=== PATIENT | male | born 1965 | race African-American/Black ===

== ENCOUNTER 2017-09-06 21:20 | Emergency (ER) | payer MEDICARE, OTHER ==
[~2017-09-06 21:20] MED LIST: DICL75 PO; TRAM50 PO
[2017-09-06 21:21] VITALS: BP 160/96; PULSE 101; RESP 16; TEMP 98.6; O2SAT 98
[2017-09-06] MEDS ORDERED: GABA800T PO (22:40)
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
== END 2017-09-07 00:36 | disposition home or self-care (01) ==
LOC: NEPD 21:20
DX: S00.83XA Contusion of other part of head, initial encounter (principal); H11.31 Conjunctival hemorrhage, right eye; M25.522 Pain in left elbow; V19.9XXA Pedal cyclist (driver) (passenger) injured in unspecified traffic accident, initial encounter; Y93.55 Activity, bike riding
CPT/HCPCS: 70486; 73080